=== PATIENT | female | born 1955 | race Caucasian/White ===

== ENCOUNTER → 2019-09-22 12:47 | Outpatient (BNVA) | payer BC, SELFPAY | PROVIDERS: Family Provider Family Medicine; Referring Provider Family Medicine; Visit Provider Family Medicine | DX: R68.89 Other general symptoms and signs (principal) | CPT/HCPCS: 87635 ==

== ENCOUNTER 2019-10-03 13:47 | Outpatient (CLI) | payer BC, SELFPAY ==
--- NOTE | 2019-10-03 14:14 | CT_ITS ---
WS: [id number] CT ABDOMEN PELVIS TECHNIQUE: Contrast-enhanced CT of the abdomen and pelvis with coronal and sagittal reformatted image s. CLINICAL INFORMATION: NAUSEA/VOMITING, EPIGASTRIC PAIN, DIARRHEA COMPARISON: None. DLP: 949.[address] scans at [facility] use at least one of these dose optimization techniques: automat ed exposure control; mA and/or kV adjustment per patient size (includes targeted exams where dose is matched to clinical indication); or iterative reconstruction. FINDINGS: Cholecystectomy. Prior postoperative changes hysterectomy and appendectomy. Bilateral breast implants . Enlargement of the left hepatic lobe with small hepatic cysts. Portal vein and splenic vein are pat ent. Normal GE junction. Lung bases are well aerated. Adrenal glands are normal. Normal renal parench ymal enhancement. Small bilateral renal cysts. Bilateral renal cortical atrophy. No hydronephrosis in either kidney. Pancreas appears normal. Normal caliber abdominal aorta. Mild thickening involving the distal stomach and pylorus extending into the proximal duodenum. This i s nonspecific but can be seen with gastritis. This can be further evaluated with endoscopy. No periaortic lymphadenopathy. Sigmoid colon appears normal. No evidence of small or large bowel obst ruction. No other significant findings. CT/CT abdomen pelvis w con* [id number] IMPRESSION: 1. Enlargement of the left hepatic lobe with a few small left hepatic cysts. 2. Mild circumferential thickening involving the distal stomach extending into the pylorus and proximal duodenum. This can be seen with gastritis but nonspec ific. This can be further evaluated with endoscopy. 3. Prior cholecystectomy. 4. Normal bilateral renal parenchymal enhancement. No hydronephrosis. Small re nal cysts. 5. Normal caliber abdominal aorta. 6. No abdominal or pelvic lymphadenopathy. 7. Normal sigmoid colon. No evidence of small or large bowel obstruction. 8. Prior hysterectomy.
[2019-10-03] MEDS: iohexol 300 mg/mL 100 mL Btl IV (14:33)
== END 2019-10-03 13:48 | disposition home or self-care (01) ==
LOC: RADWPI 13:53
PROVIDERS: Family Provider Family Medicine; PCP Family Medicine; Visit Provider Family Medicine
DX: R11.2 Nausea with vomiting, unspecified (principal); R10.13 Epigastric pain; R19.7 Diarrhea, unspecified; R16.0 Hepatomegaly, not elsewhere classified; N28.1 Cyst of kidney, acquired
CPT/HCPCS: 74177; Q9967